=== PATIENT | female | born 1960 | race Caucasian/White ===

== ENCOUNTER 2018-09-15 00:10 | Emergency (ER) | payer SELFPAY ==
[~2018-09-15] VITALS: Ht 154.9 cm; Wt 81.6 kg
[2018-09-15 00:10] VITALS: BP 136/75
[2018-09-15] MEDS ORDERED: HYDR-3165 PO (00:30)
[2018-09-15] MEDS ORDERED: PENI500T PO (00:30)
--- NOTE | 2018-09-15 00:31 | PHYS DOC ---
Adult General Chief Complaint Chief Complaint dental pain HPI HPI 4 0 years old female presented emergency department with dental pain started about a week ago on the left lower side Review of Systems Review of Systems Constitutional: Denies fever or chills [] Eyes: Denies change in visual acuity, redness, or eye pain [] HENT: Denies nasal congestion or sore throat [] Respiratory: Denies cough or shortness of breath [] Cardiovascular: No additional information not addressed in HPI [] GI: Denies abdominal pain, nausea, vomiting, bloody stools or diarrhea [] : Denies dysuria or hematuria [] Musculoskeletal: Denies back pain or joint pain [] Integument: Denies rash or skin lesions [] Neurologic: Denies headache, focal weakness or sensory changes [] Endocrine: Denies polyuria or polydipsia [] All other systems were reviewed and found to be within normal limits, except as documented in this note. Physical Exam Physical Exam Constitutional: Well developed, well nourished, no acute distress, non-toxic appearance. [] HENT: Normocephalic, atraumatic, bilateral external ears normal, oropharynx moist, no oral exudates, nose normal. [] Eyes: PERRLA, EOMI, conjunctiva normal, no discharge. [] Neck: Normal range of motion, no tenderness, supple, no stridor. [] Cardiovascular:Heart rate regular rhythm, no murmur [] Lungs & Thorax: Bilateral breath sounds clear to auscultation [] Abdomen: Bowel sounds normal, soft, no tenderness, no masses, no pulsatile masses. [] Skin: Warm, dry, no erythema, no rash. [] Back: No tenderness, no CVA tenderness. [] Extremities: No tenderness, no cyanosis, no clubbing, ROM intact, no edema. [] Neurologic: Alert and oriented X 3, normal motor function, normal sensory function, no focal deficits noted. [] Psychologic: Affect normal, judgement normal, mood normal. [] EKG EKG [] Radiology/Procedures Radiology/Procedures [] Course & Med Decision Making Course & Med Decision Making Pertinent Labs and Imaging studies reviewed. (See chart for details) [] Final Impression Final Impression [] Problems: (1) Dental abscess Dragon Disclaimer Dragon Disclaimer This electronic medical record was generated, in whole or in part, using a voice recognition dictation system. KAY MA MD Sep 15, 2018 00:31
[2018-09-15] MEDS ORDERED: HYDROcodone/APAP 5/325MG 1 TAB TABLET PO ONE (00:45)
[2018-09-15] MEDS ORDERED: IBUPROFEN 600 MG TABLET. PO ONE (00:45)
== END 2018-09-15 00:50 | disposition home or self-care (01) ==
LOC: ER 00:10
DX: K04.7 Periapical abscess without sinus (principal)
CPT/HCPCS: 99283

== ENCOUNTER 2020-08-05 14:10 | Emergency (ER) | payer MEDICAID, OTHER ==
[~2020-08-05] VITALS: Ht 154.9 cm; Wt 102.2 kg
[~2020-08-05 14:10] MED LIST: HYDR-3165 PO; PENI500T PO
--- NOTE | 2020-08-05 15:55 | PHYS DOC ---
Past History Past Medical History: Other Past Surgical History: Appendectomy, Hysterectomy, Tonsillectomy Alcohol Use: None Drug Use: None Adult General Chief Complaint Chief Complaint: LOWER EXTREMITY SWELLING HPI HPI Patient is a 60 year old female who presents with right-sided low back pain that radiates down right buttocks to right inner thigh and down right inner thigh for the past 3 weeks after sleeping in a cramped position with her grandchildren at home. Patient states that she did not take anything for the pain since it started, stating it was just nagging in the beginning that has slowly become worse. Patient states that her pain is not debilitating, however rates her pain at a 6-7/10 on a 1-10 pain scale. Patient states that she has never injured her back before. Patient denies any popliteal pain, calf pain, or extremity swelling. Patient states that she does not take any prescription medications at home nor does she take [id number] medications at home. Patient states that she does not have any allergies to medications. Patient denies any numbness or tingling of her extremities. Patient denies any fever or chills, visual changes, nasal congestion, cough, shortness of breath, chest pain or edema. Patient denies any abdominal pain, nausea, vomiting, diarrhea, or constipation. Patient denies any problems urinating, denies any STI concerns, denies any vaginal discharge. Patient denies any pain in her joints, any skin rashes, headaches, focal weaknesses or sensory changes. Patient denies any increased urination or increased thirst. Patient denies any swelling of her glands, patient denies depressions, anxieties, homicidal or suicidal ideations. Patient denies any COVID-19 symptoms today, patient states that she does not wish to be tested for the COVID-19 virus. Review of Systems Review of Systems Constitutional: Denies fever or chills Eyes: Denies change in visual acuity, redness, or eye pain HENT: Denies nasal congestion or sore throat Respiratory: Denies cough or shortness of breath Cardiovascular: No additional information not addressed in HPI GI: Denies abdominal pain, nausea, vomiting, bloody stools or diarrhea : Denies dysuria or hematuria Musculoskeletal: Denies back pain or joint pain Integument: Denies rash or skin lesions Neurologic: Denies headache, focal weakness or sensory changes Endocrine: Denies polyuria or polydipsia Psychiatric: Patient denies homicidal or suicidal ideation, patient denies anxieties or depression. All other systems were reviewed and found to be within normal limits, except as documented in this note. Current Medications Current Medications Patient states she does not take any [id number] medication patient states she does not take any prescription medications. Allergies Allergies Patient denies allergies to medications. Allergies Coded Allergies Type Severity Reaction Last Updated Verified No Known Drug Allergies 09/15/18 No Physical Exam Physical Exam Constitutional: Well developed, well nourished, no acute distress, non-toxic appearance. HENT: Normocephalic, atraumatic, bilateral external ears normal, oropharynx moist, no oral exudates, nose normal. Eyes: PERRLA, EOMI, conjunctiva normal, no discharge. Neck: Normal range of motion, no tenderness, supple, no stridor. Cardiovascular:Heart rate regular rhythm, no murmur Lungs & Thorax: Bilateral breath sounds clear to auscultation Abdomen: Bowel sounds normal, soft, no tenderness, no masses, no pulsatile masses. Skin: Warm, dry, no erythema, no rash. Back: No midline tenderness, no CVA tenderness. Pain to palpation of the right lower lumbar region that extends to the buttocks. Extremities: , no cyanosis, no clubbing, ROM intact, no edema. Tenderness to palpation down right inner thigh to knee area, no popliteal pain, no knee pain, no calf tenderness, no swelling, no edema, no erythema noted, skin temperature within normal limits to touch. Neurologic: Alert and oriented X 3, normal motor function, normal sensory function, no focal deficits noted. Psychologic: Affect normal, judgement normal, mood normal. Current Patient Data Vital Signs Vital Signs Date Time Temp Pulse Resp B/P (MAP) Pulse Ox O2 Delivery O2 Flow Rate FiO2 08/05/20 14:50 97.8 72 16 152/91 (111) 96 Room Air EKG EKG [] Radiology/Procedures Radiology/Procedures [] Heart Score Risk Factors: Risk Factors: DM, Current or recent (<one month) smoker, HTN, HLP, family history of CAD, obesity. Risk Scores: Risk Factors: DM, Current or recent (<one month) smoker, HTN, HLP, family history of CAD, obesity. Course & Med Decision Making Course & Med Decision Making Pertinent Labs and Imaging studies reviewed. (See chart for details) 60-year-old female with stable vital signs presents emergency department with his low right back pain that radiates down her right buttocks and down her right inner thigh to her knee. Patient denies injury however states that 3 weeks ago she was laying in a funny cramped position with several of her grandchildren in her bed during an overnight stay. Patient states that when she woke up the next morning she noticed this achy pain that was just nagging at first and slowly became worse to where she thought she should seek care. Patient rates her pain at a 6-7/10 at time of HPI. Physical examination was consistent with sciatica pain, there was no saddle anesthesia appreciated, no signs of cauda equina. Patient has not taken anything for the pain. Patient will be given 60 mg Toradol IM, 110 mg Flexeril p.o. and 1 5/325 mg Melrude p.o. in the emergency department. Patient will be discharged home with a prescription for 600 mg Motrin, 10 mg Flexeril for her sciatica pain, patient will be given a prescription for 5 mg Melrude count 10 for severe breakthrough pain. Patient gave verbal understanding of home care instructions, prescriptions instructions, return to ER concerns, patient had no further questions or concerns, patient discharged home without incident. Dragon Disclaimer Dragon Disclaimer This electronic medical record was generated, in whole or in part, using a voice recognition dictation system. Departure Departure: Impression: Primary Impression: Sciatic leg pain Additional Impression: Right leg pain Disposition: 01 DC HOME SELF CARE/HOMELESS Condition: STABLE Referrals: PCP,NO (PCP) Patient Instructions: Sciatica Additional Instructions: Take medications as prescribed, use ice to the sore areas 30 minutes on 30 minutes off while awake. Rest for the next 48 hours. Return to the emergency department for worsening symptoms or other concerns. Follow-up with your primary care doctor soon. Scripts Ibuprofen (Ibu) 600 Mg Tablet 1 TAB PO PRN Q8HRS PRN for PAIN for 7 Days, #28 TAB 0 Refills Prov: NICKI QUEEN APRN 08/05/20 Hydrocodone Bit/Acetaminophen (NORCO 5-325 TABLET) 1 Each Tablet 1-2 TAB PO Q4-6HRS for pain, #10 TAB 0 Refills Prov: NICKI QUEEN APRN 08/05/20 Cyclobenzaprine Hcl (CYCLOBENZAPRINE HCL) 10 Mg Tablet 1 TAB PO TID PRN PRN for PAIN, #12 TAB 0 Refills Prov: NICKI QUEEN APRN 08/05/20 Problem Qualifiers NICKI QUEEN APRN Aug 05, 2020 15:55
[2020-08-05] MEDS ORDERED: CYCLOBENZAPRINE 10 MG TABLET. ONE (16:25)
[2020-08-05] MEDS ORDERED: HYDROcodone/APAP 5/325MG 1 TAB TABLET ONE (16:25)
[2020-08-05] MEDS ORDERED: KETOROLAC 60 MG/2 ML VIAL. IM ONE ×2 (16:25→16:30)
[2020-08-05] MEDS ORDERED: CYCL-331 PO (16:26)
[2020-08-05] MEDS ORDERED: HYDR-3165 PO (16:26)
[2020-08-05] MEDS ORDERED: IBUP-571 PO (16:26)
[2020-08-05] MEDS ORDERED: CYCLOBENZAPRINE 10 MG TABLET. PO ONE (16:30)
[2020-08-05] MEDS ORDERED: HYDROcodone/APAP 5/325MG 1 TAB TABLET PO ONE (16:30)
== END 2020-08-05 16:34 | disposition home or self-care (01) ==
LOC: ER 14:10
DX: M54.41 Lumbago with sciatica, right side (principal); M79.604 Pain in right leg; Z90.89 Acquired absence of other organs; Z90.710 Acquired absence of both cervix and uterus
CPT/HCPCS: 96372; 99283; J1885

== ENCOUNTER 2021-10-30 15:32 | Emergency (ER) | payer OTHER, MEDICAID ==
[~2021-10-30] VITALS: Ht 154.9 cm; Wt 102.2 kg
[~2021-10-30 15:32] MED LIST changes: +CYCL10TA19 PO; +IBUP-571 PO
[2021-10-30] MEDS ORDERED: IV RINGERS SOLUTION,LACTATED 1,000 ML IV SCH (16:15)
[2021-10-30 16:25] LABS: BASO # 0.1 x10^3/uL (0.0-0.2); BASO % 1 % (0-3); EOS # 0.1 x10^3/uL (0.0-0.7); EOS % 1 % (0-3); HEMATOCRIT 43.9 % (36.0-47.0); HEMOGLOBIN 15.1 g/dL (12.0-15.5); LYMPH # 0.6 x10^3/uL (1.0-4.8); LYMPH % 6 % (24-48); MEAN CORPUSCULAR HEMOGLOBIN 30 pg (25-35); MEAN CORPUSCULAR HGB CONC 34 g/dL (31-37); MEAN CORPUSCULAR VOLUME 86 fL (79-100); MONO # 0.8 x10^3/uL (0.0-1.1); MONO % 8 % (0-9); NEUT # 9.3 x10^3uL (1.8-7.7); NEUT % 85 % (31-73); PLATELET COUNT 247 x10^3/uL (140-400); RED BLOOD COUNT 5.08 x10^6/uL (3.50-5.40); RED CELL DISTRIBUTION WIDTH 13.9 % (11.5-14.5)
[2021-10-30 16:27] LABS: CREATININE 0.9 mg/dL (0.6-1.0); GFR 63.2; POTASSIUM 3.7 mmol/L (3.5-5.1)
--- NOTE | 2021-10-30 16:27 | EKG ---
[address] [address] Test Date: 2021-10-30 Test Time: 15:42:19 Pat Name: EMILE RODRIGUEZ Department: Room: Gender: F Agriculture Science Teacher: : 1960 Requested By: BIJAN INGRAM Order Number: [id number] Reading MD: Hong Toth Measurements Intervals [place] Rate: 99 P: 232 SC: 76 QRS: 20 QRSD: 92 T: 51 QT: 328 QTc: 426 Interpretive Statements SINUS RHYTHM NON SPECIFIC ST-T WAVE CHANGES Electronically Signed On 10-31-2021 13:52:50 [employer] by Hong Toth
[2021-10-30 16:33] LABS: ALBUMIN 3.7 g/dL (3.4-5.0); ALBUMIN/GLOBULIN RATIO 0.9 (1.0-1.7); MAGNESIUM 1.8 mg/dL (1.8-2.4); TOTAL BILIRUBIN 0.3 mg/dL (0.2-1.0); TOTAL PROTEIN 7.6 g/dL (6.4-8.2)
--- NOTE | 2021-10-30 16:38 | RAD ---
AP chest x-ray HISTORY: Chest pain. FINDINGS: Borderline cardiomegaly may be magnified somewhat by the AP portable technique. Mediastinal silhouette is normal. No pneumothorax. No pleural effusions. Indistinct density at the lung bases li benny due to summation of overlying chest wall tissues decreasing sensitivity to detect subtle opaciti es at the lung bases, in light of this there is focal increased density at the right lung base which may indicate underlying atelectasis/infiltrate. No discrete opacity of the left lung evident. Bones a re unremarkable. IMPRESSION: Heterogeneous focal opacity right lung base could represent subsegmental atelectasis vers us early pneumonia or asymmetric edema. See above. Electronically signed by: Dano Terry MD (10/30/2021 4:36 PM) [facility]
[2021-10-30] MEDS ORDERED: AZIT250T6 PO (17:47)
--- NOTE | 2021-10-30 17:57 | PHYS DOC ---
Past History Past Medical History: Fibromyalgia, Other Additional Past Medical Histor: "irregular heart beat" (BIJAN INGRAM) Past Surgical History: Appendectomy, Hysterectomy, Tonsillectomy (BIJAN INGRAM) Alcohol Use: None Drug Use: None (BIJAN INGRAM) General Adult EDM: Chief Complaint: CHEST PAIN HPI: HPI: Patient is a 61 year old female with past medical history of "irregular heart beat" who presents with chest discomfort that began just prior to arrival. Patient describes the chest pain as a "soft tapping, like a rubber band." She reports associated lightheadedness. Patient denies nausea, vomiting, diaphoresis, shortness of breath, cough, palpitations. (BIJAN INGRAM) Review of Systems: Review of Systems: Constitutional: Denies fever, chills or generalized weakness Eyes: Denies change in visual acuity, visual field deficits or discharge HENT: Denies ear pain, nasal congestion or sore throat Respiratory: See HPI Cardiovascular: See HPI GI: Denies abdominal pain, nausea, vomiting, bloody stools or diarrhea : Denies dysuria or hematuria Musculoskeletal: Denies back pain or joint pain Integument: Denies rash or other skin lesion Neurologic: Denies headache, focal weakness or sensory changes (BIJAN INGRAM) Current Medications: Current Meds: Current Medications Medications (Trade) Dose Ordered Sig/Joyce Start Time Stop Time Status Last Admin Dose Admin Lactated Ringer's 1,000 ml @ 1,000 mls/hr Q1H 10/30/21 16:15 10/30/21 17:14 DC (BIJAN INGRAM) Allergies: Allergies: Allergies Coded Allergies Type Severity Reaction Last Updated Verified No Known Drug Allergies 09/15/18 No (BIJAN INGRAM) Physical Exam: PE: Constitutional: Obese, no acute distress, non-toxic appearance. HENT: Normocephalic, atraumatic, bilateral external ears normal, nose normal. Eyes: EOMI, conjunctiva normal, no discharge. Neck: Normal range of motion, no stridor. Cardiovascular: Heart rate regular rhythm, no obvious murmur. Lungs & Thorax: Bilateral breath sounds clear to auscultation, diminished in bases. Extremities: No tenderness, no cyanosis, no clubbing, ROM intact. Neurologic: Alert and oriented x4, no focal deficits noted. (BIJAN INGRAM) Current Patient Data: Labs: Laboratory Tests Test 10/30/21 15:55 White Blood Count 11.0 x10^3/uL (4.0-11.0) Red Blood Count 5.08 x10^6/uL (3.50-5.40) Hemoglobin 15.1 g/dL (12.0-15.5) Hematocrit 43.9 % (36.0-47.0) Mean Corpuscular Volume 86 fL (79-100) Mean Corpuscular Hemoglobin 30 pg (25-35) Mean Corpuscular Hemoglobin Concent 34 g/dL (31-37) Red Cell Distribution Width 13.9 % (11.5-14.5) Platelet Count 247 x10^3/uL (140-400) Neutrophils (%) (Auto) 85 % (31-73) H Lymphocytes (%) (Auto) 6 % (24-48) L Monocytes (%) (Auto) 8 % (0-9) Eosinophils (%) (Auto) 1 % (0-3) Basophils (%) (Auto) 1 % (0-3) Neutrophils # (Auto) 9.3 x10^3uL (1.8-7.7) H Lymphocytes # (Auto) 0.6 x10^3/uL (1.0-4.8) L Monocytes # (Auto) 0.8 x10^3/uL (0.0-1.1) Eosinophils # (Auto) 0.1 x10^3/uL (0.0-0.7) Basophils # (Auto) 0.1 x10^3/uL (0.0-0.2) Sodium Level 137 mmol/L (136-145) Potassium Level 3.7 mmol/L (3.5-5.1) Chloride Level 103 mmol/L (98-107) Carbon Dioxide Level 23 mmol/L (21-32) Anion Gap 11 (6-14) Blood Urea Nitrogen 17 mg/dL (7-20) Creatinine 0.9 mg/dL (0.6-1.0) Estimated GFR (Cockcroft-Gault) 63.2 BUN/Creatinine Ratio 19 (6-20) Glucose Level 107 mg/dL (70-99) H Calcium Level 9.0 mg/dL (8.5-10.1) Magnesium Level 1.8 mg/dL (1.8-2.4) Total Bilirubin 0.3 mg/dL (0.2-1.0) Aspartate Amino Transferase (AST) 16 U/L (15-37) Alanine Aminotransferase (ALT) 23 U/L (14-59) Alkaline Phosphatase 96 U/L (46-116) Troponin I High Sensitivity 6 ng/L (4-50) Total Protein 7.6 g/dL (6.4-8.2) Albumin 3.7 g/dL (3.4-5.0) Albumin/Globulin Ratio 0.9 (1.0-1.7) L Lipase 99 U/L (73-393) Vital Signs: Vital Signs Date Time Temp Pulse Resp B/P (MAP) Pulse Ox O2 Delivery O2 Flow Rate FiO2 10/30/21 18:17 84 20 140/68 (92) 97 10/30/21 15:41 98.1 100 20 162/105 (124) 94 Room Air (BIJAN INGRAM) EKG: EKG: EKG Interpreted by Dr. Carreno at 1548: Regular rate and rhythm 99 bpm with no ectopic beats. QT 328 ms/QTc 426 ms. No STEMI. (BIJAN INGRAM) Radiology/Procedures: Radiology/Procedures: PROCEDURE: PORTABLE CHEST 1V AP chest x-ray HISTORY: Chest pain. FINDINGS: Borderline cardiomegaly may be magnified somewhat by the AP portable technique. Mediastinal silhouette is normal. No pneumothorax. No pleural effusions. Indistinct density at the lung bases likely due to summation of overlying chest wall tissues decreasing sensitivity to detect subtle opacities at the lung bases, in light of this there is focal increased density at the right lung base which may indicate underlying atelectasis/infiltrate. No discrete opacity of the left lung evident. Bones are unremarkable. IMPRESSION: Heterogeneous focal opacity right lung base could represent subsegme ntal atelectasis versus early pneumonia or asymmetric edema. See above. Electronically signed by: Dano Terry MD (10/30/2021 4:36 PM) [facility] (BIJAN INGRAM) Heart Score: C/O Chest Pain: Yes HEART Score for Chest Pain: HEART Score for Chest Pain Response (Comments) Value History Slighlty/Non-Suspicious 0 ECG Normal 0 Age >45 - < 65 1 Risk Factors 1 or 2 Risk Factors 1 Troponin < Normal Limit 0 Total 2 Risk Factors: Risk Factors: obesity Risk Scores: Score 0 - 3: 2.5% MACE over next 6 weeks - Discharge Home Score 4 - 6: 20.3% MACE over next 6 weeks - Admit for Clinical Observation Score 7 - 10: 72.7% MACE over next 6 weeks - Early Invasive Strategies (BIJAN INGRAM) Course & Med Decision Making: Course & Med Decision Making Pertinent Labs and Imaging studies reviewed. (See chart for details) Patient is a 61-year-old female who presents with mild chest comfort. At this time, history and presentation is less concerning for cardiac etiology, but EKG, troponin, chest x-ray included in work-up for evaluation of this. Work-up today reveals evidence of pneumonia on chest x-ray. Patient will be treated with azithromycin with strict return precautions for symptoms that do not improve or get worse. Patient is fairly new to the area, so both primary care and cardiology resources were provided. Patient understands and is agreeable to discharge plan. (BIJAN INGRAM) Dragon Disclaimer: Dragon Disclaimer: This electronic medical record was generated, in whole or in part, using a voice recognition dictation system. (BIJAN INGRAM) Attending Co-Sign The patient was seen and interviewed as well as examined at the bedside. The chart was reviewed. The case was discussed. Agree with the plan of care. (BETHANY CARRENO DO) Departure Departure: Impression: Primary Impression: Community acquired pneumonia Qualified Codes: J18.9 - Pneumonia, unspecified organism Disposition: HOME / SELF CARE / HOMELESS Condition: STABLE Referrals: PCP,NO (PCP) Patient Instructions: Incentive Spirometer, Pneumonia, Adult, [id number] Additional Instructions: Follow these supportive treatment measures: - Cool mist humidifier with plain water at bedside while you sleep - Mucinex (guaifenesin) per box instructions - Alternate ibuprofen and acetaminophen every four hours for body aches/fever/headache - Use the incentive spirometer 5 times per day with 10 deep breaths each time If antibiotics were prescribed, take them as directed. COVID-19 infection cannot be ruled out as your diagnosis. At this time, PCR COVID-19 tests are not available. It is an infection caused by a new type of coronavirus. COVID-19 will cause cold-like or mild flu symptoms in most. It can cause more severe symptoms like problems breathing in some. There is no treatment for COVID-19. The body will clear the infection over time. Self-care will help to ease discomfort. Steps to Take: - Rest as needed. - Choose healthy foods including fruits and vegetables. Drink water throughout the day. - Get plenty of sleep each night. - If you smoke, try to quit. It may ease breathing. - Avoid alcohol. - Keep Others Healthy - The virus can spread to others. Droplets are released every time you sneeze or cough. The droplets can get into the mouth, nose, or eyes of people near you and lead to infection. To lower the chances of spreading COVID-19 to others: Stay at home until your doctor has said it is safe to leave. If you tested positive this will mean staying isolated until both of the following are true: - At least 10 days have passed since the start of illness. - You are free of fever for at least 72 hours without the use of medicine. During this time: - Avoid public areas, events, or transportation. Do not return to work or school until your doctor has said it is safe to do so. - Call ahead if you need to go to a medical center. Let them know you may have COVID-19. It will help them guide you where to go. They may also ask you to wear a facemask when you come to the office. - If you call for emergency medical services, let them know you may have COVID- 19. While at home: - Try to avoid close contact with others. Stay about 6 feet away. - If possible, spend most of your time in a separate room from others. - Use a face mask if you will be in close contact with others such as sharing a room or vehicle. - Have someone wipe down common surfaces in the home. Use household spice miller every day on areas like doorknobs, counters, or sinks. - Cough or sneeze into a tissue. Throw the tissue away right after use. If a tissue is not available, cough or sneeze into your elbow. - Wash your hands often. Wash them after sneezing or coughing. Use soap and water and wash or at least 20 seconds. Alcohol based hand immersion metal cleaner can be used if soap and water is not available. - Do not prepare food for others. Avoid sharing personal items like forks, s poons, or toothbrushes. - Avoid close contact with pets while you are sick. There is no evidence of the virus passing to pets. This is a safety step until more is known about this virus. - Isolation can be frustrating. Social interaction can help. Keep in touch with friends and family through phone and tech options. You can still interact with others in your home, just keep a safe distance of about 6 feet. Follow-up: (see handout provided to establish care) - Your doctors office will check in with you to see if there are any changes in your health. - You may be asked to keep track of symptoms to share with them. They will also let you know when you are clear to be in public again. Contact your doctor if your recovery is not going as you expect. Get emergency care if you have problems such as: - Trouble breathing with oxygen saturation <90% - Nonstop chest pain or pressure - Changes in awareness, confusion, or problems waking - Lips or face have bluish color - Worsening of symptoms If you think you have an emergency, call for emergency medical services right away. [facility] Script[facility] Azithromycin (AZITHROMYCIN TABLET) 250 Mg Tablet 1 PKG PO UD for PNA for 5 Days, #6 TAB 0 Refills 2 the first day followed by 1 for days 2-5 Prov: BIJAN INGRAM 10/30/21 BIJAN INGRAM Oct 30, 2021 17:57 BETHANY CARRENO DO Oct 31, 2021 16:49
[2021-10-30 18:17] VITALS: BP 140/68
== END 2021-10-30 18:18 | disposition home or self-care (01) ==
LOC: ER 15:32
DX: J18.9 Pneumonia, unspecified organism (principal); M79.7 Fibromyalgia
CPT/HCPCS: 36415; 71045; 80053; 83690; 83735; 84484; 85025; 93005; 99285